=== PATIENT | female | born 1940 | race African-American/Black ===

== ENCOUNTER 2016-10-12 13:29 | Inpatient (IN) | payer OTHER ==
--- NOTE | ~2016-10-12 | OP ---
Record Of Operation [facility] [address] [place]. [address] NAME: WOJCIECH TERAN : 36 STATUS : ADM IN PAT#: [id number] AGE: 76 ADM/REG DATE : 10/12/16 MR#: [id number] REPORT SERV DATE: 10/12/16 DICTATED BY: CRISTEL LALA DATE: 10/12/16 REPORT STATUS : Draft TRANSCRIBED BY: MODL DATE: 10/12/16 DATE OF PROCEDURE: 10/12/2016 PREOPERATIVE DIAGNOSIS: Mechanical large bowel obstruction. POSTOPERATIVE DIAGNOSIS: Mechanical large bowel obstruction. PROCEDURE: Colostomy creation. ATTENDING: Gisel Lala M.D. CHIEF RESIDENT: Tee Short MD ANESTHESIA: General. IV FLUIDS: Approximately 1 L of crystalloid. ESTIMATED BLOOD LOSS: 20 mL. COMPLICATIONS: None. COUNTS: Correct. SPECIMEN: None. BRIEF HISTORY: This patient is a 76-year-old female with a three-day history of obstipation that previously had increased frequency of stools. She was suffering from abdominal pain and distention, and evaluated in the emergency department. CT of the abdomen and pelvis demonstrated mechanical large bowel obstruction at the level of the rectosigmoid junction. Of note, she has a large right abdominal wall hernia that contains the proximal colon. At this time, we offered her a colostomy creation, and reviewed the risks and benefits of the procedure with her and her daughters. They agreed to proceed. DESCRIPTION OF PROCEDURE: The patient was brought to the operating room and placed supine on the operating table. Anesthetic was administered and endotracheal intubation achieved. The abdomen was prepped and draped in standard sterile fashion. A time-out was held. Incision was made at the lateral aspect of the hernia cephalad from the umbilicus with a diameter of about 2 cm. The peritoneum was identified and opened. The large intestine was produced from the wound and a defect created in the mesentery. A white bar was passed across this. Next, the colon was opened in a transverse fashion and the ostomy matured with 3-0 chromic in a Erin fashion. Ostomy appliance was placed and the procedure terminated. The patient tolerated the procedure well, was extubated and transferred to recovery in stable condition. JDS/MODL Record Of Operation [facility] [address] [facility] [place]. [address] NAME: WOJCIECH TERAN : 36 STATUS : ADM IN PAT#: [id number] AGE: 76 ADM/REG DATE : 10/12/16 MR#: [id number] REPORT SERV DATE: 10/12/16 DICTATED BY: CRISTEL LALA DATE: 10/12/16 REPORT STATUS : Draft TRANSCRIBED BY: MODL DATE: 10/12/16 Gisel Lala M.D. / [id number] CC: Gisel Lala M.D.
--- NOTE | ~2016-10-12 | HP ---
History And Physical [id number] [place]. [address] NAME: WOJCIECH TERAN : 36 STATUS : ADM IN [facility]#: [id number] AGE: 76 ADM/REG DATE : 10/12/16 MR#: [id number] REPORT SERV DATE: 10/12/16 DICTATED BY: CRISTEL LALA DATE: 10/12/16 REPORT STATUS : Draft TRANSCRIBED BY: MODL DATE: 10/12/16 DATE OF ADMISSION: 10/12/2016 CHIEF COMPLAINT: Abdominal pain. HISTORY: Ms. Teran is a 76-year-old female who had presented with frequent small-volume stools, which had been going on for several weeks, but then had increasing distention, nausea, vomiting, and abdominal pain over the last approximately two to three days with decreased bowel function and abdominal pain, which is constant in nature along with bloating. She presented to the emergency room where she underwent CT scan, which was consistent with a colon obstruction at the rectosigmoid. There was some high density material at that site though she says she has never had a colon resection. She has had a hysterectomy and a chronic hernia. PAST MEDICAL HISTORY: Her medical illnesses include hypertension, coronary artery disease with history of stents, and arthritis, as well as congestive heart failure. MEDICATIONS: Include aspirin, Lipitor, and Plavix though she has not filled this for a long time, doxycycline, Lasix, Cozaar, Toprol, triamcinolone cream, and potassium. ALLERGIES: SHE HAS NO MEDICAL ALLERGIES. FAMILY HISTORY: Negative for colon cancer. She denies tobacco or ethanol abuse. REVIEW OF SYSTEMS: Comprehensive review of systems was obtained and she denies neurologic or psychiatric symptoms. She has a little bit of throat problems with allergies. She has had frequent urinary tract infections, but does not know of other kidney problems. She does have musculoskeletal complaints, but no chest pain or shortness of breath. A comprehensive review was otherwise negative. PHYSICAL EXAMINATION: VITAL SIGNS: Her blood pressure is 194/94, temperature 97.7, pulse is 76, and respiratory rate 18. GENERAL: She is alert, not in any distress. HEENT: She has no scleral icterus. She has moist mucous membranes. There is no JVD. No thyromegaly or cervical adenopathy. There is no use of accessory muscles of breathing. CHEST: Clear. HEART: Irregular. ABDOMEN: Distended with diminished bowel sounds. She does have a large incarcerated hernia, which is based on the CT scan is filled colon. DIAGNOSTIC STUDIES: Additional data: CT scan reveals a colon obstruction as previously mentioned and it was independently reviewed. Labs include a potassium of 3.3, creatinine of 1.08, and albumin is 3.9. White blood cell History And Physical [address] [place]. [address] NAME: WOJCIECH TERAN : 36 STATUS : ADM IN PAT#: [id number] AGE: 76 ADM/REG DATE : 10/12/16 MR#: [id number] REPORT SERV DATE: 10/12/16 DICTATED BY: CRISTEL LALA DATE: 10/12/16 REPORT STATUS : Draft TRANSCRIBED BY: DANIEL DATE: 10/12/16 count is 9 and hemoglobin is 12.4. Of note, she has not had any colonoscopies ever. IMPRESSION: Colon obstruction. We discussed options of stent and I discussed this with Dr. Perez and also we discussed the option of resection with end colostomy for anticipated temporary diversion with subsequent workup of the strictured area, which is obvious on CT scan and with subsequent definitive therapy and also a diverting stoma was discussed. The risks of the diverting stoma including but not limited to stoma problems, bleeding, infection, damage to organs, DVT, heart and lung complications, anesthesia, and need for stage operation among others were discussed with her and her family, and she expressed understanding and agreed to proceed. ERIK/DANIEL Gisel Lala M.D. / [id number] CC: Gisel Lala M.D. NO PCP
[2016-10-12 12:08] LABS: BASOPHILS 0 %; EOSINOPHILS 0 %; IMMATURE GRANULOCYTES 0.1 %; IMMATURE GRANULOCYTES ABSOLUTE 0.01 10/3/uL (0.0-0.11); LYMPHOCYTES 8.4 %; LYMPHOCYTES ABSOLUTE 0.76 10/3/uL (0.67-4.30); MEAN CORPUS HGB CONC 33.1 g/dL (32.0-36.0); MEAN CORPUSCULAR HEMOGLOB 25.8 pg (26.0-34.0); MEAN CORPUSCULAR VOLUME 78.1 fL (80-100); MEAN PLATELET VOLUME 10.2 fL (9.2-13.0); MONOCYTES ABSOLUTE 0.18 10/3/uL (0.21-1.20); NEUTROPHILS 89.5 %; NEUTROPHILS ABSOLUTE 8.05 10/3/uL (2.02-8.40); PLATELET COUNT 227 10/3/uL (150-400)
[2016-10-12 12:12] LABS: ER CBC TAT 0 Hrs 08 Mins; HEMATOCRIT 37.5 % (36.0-48.0); HEMOGLOBIN 12.4 g/dL (12.0-16.0); MANUAL DIFF NO %
[2016-10-12 12:23] LABS: ALBUMIN 3.9 G/DL (3.5-5.0); BUN (BLOOD UREA NITROGEN) 15 MG/DL (6-23); CALCIUM, SERUM 9.4 MG/DL (8.5-10.4); CHLORIDE, SERUM 105 MMOL/L (96-112); CO2 (CARBON DIOXIDE) 29 MMOL/L (24-34); CREATININE 1.08 MG/DL (0.55-1.02); GFR AFRICAN AMERICAN 57 ML/MIN (>=60); GFR NON AFRICAN AMERICAN 49 ML/MIN (>=60); SGPT(ALT) 16 U/L (5-65); SODIUM, SERUM 140 MMOL/L (135-148); TOTAL BILIRUBIN 0.5 MG/DL (0-1.2); TOTAL PROTEIN 7.9 G/DL (6.0-8.5)
[2016-10-12 12:25] LABS: POTASSIUM, SERUM 3.3 MMOL/L (3.5-5.3)
[2016-10-12 12:26] LABS: ALKALINE PHOSPHATASE 142 U/L (45-117); GLUCOSE, SERUM 142 MG/DL (60-99); SGOT(AST) 19 U/L (5-40)
[2016-10-12 13:05] LABS: ASCORBIC ACID (UR NOT ORDER) NEG (NEG); BILIRUBIN, URINE NEGATIVE (NEG); ER URINALYSIS TAT 0 Hrs 08 Mins; KETONE, URINE NEGATIVE (NEG); LEUKOCYTE ESTERASE(NOT OR NEG (NEG); NITRITE (URINE) NEG (NEG); WBC (NOT ORDERED) (RFLEX) 1 (0-5)
[2016-10-12] MEDS ORDERED: VIBRATAB100 MG PO (13:49)
[2016-10-12] MEDS ORDERED: HALF81 PO (13:49)
[2016-10-12] MEDS ORDERED: LIPITOR40 PO (13:50)
[2016-10-12] MEDS ORDERED: COZAAR100 MG PO (13:50)
[2016-10-12] MEDS ORDERED: TRIAMCINOLONE C80 GM TOP (13:52)
[2016-10-12] MEDS ORDERED: KLOR-CON M2020 MEQ PO (13:54)
[2016-10-12] MEDS ORDERED: TOPXL25 PO (13:58)
[2016-10-12] MEDS ORDERED: PLAVIX PO (13:58)
[2016-10-12] MEDS ORDERED: L40 PO (13:59)
[2016-10-13 04:46] LABS: BUN (BLOOD UREA NITROGEN) 13 MG/DL (6-23); CALCIUM, SERUM 8.7 MG/DL (8.5-10.4); CHLORIDE, SERUM 107 MMOL/L (96-112); CO2 (CARBON DIOXIDE) 27 MMOL/L (24-34); GFR AFRICAN AMERICAN 62 ML/MIN (>=60); GFR NON AFRICAN AMERICAN 54 ML/MIN (>=60); GLUCOSE, SERUM 121 MG/DL (60-99); POTASSIUM, SERUM 3.7 MMOL/L (3.5-5.3); SODIUM, SERUM 142 MMOL/L (135-148)
[2016-10-14] MEDS ORDERED: IBU600 PO (10:15)
== END 2016-10-14 13:55 | disposition home health service (06) | DRG 331 ==
LOC: ER 13:29 → 5SO 15:16
PROVIDERS: Colon & Rectal Surgery; Emergency Medicine
PROC: 0D1K0Z4 Bypass Ascending Colon to Cutaneous, Open Approach (ICD-10-PCS; principal; 2016-10-12 16:17)
DX: K56.69 Other intestinal obstruction (principal); I50.9 Heart failure, unspecified; K59.00 Constipation, unspecified; I10 Essential (primary) hypertension; I25.10 Atherosclerotic heart disease of native coronary artery without angina pectoris; Z95.5 Presence of coronary angioplasty implant and graft; Z90.02 Acquired absence of larynx; Z90.710 Acquired absence of both cervix and uterus; M19.90 Unspecified osteoarthritis, unspecified site; Z79.82 Long term (current) use of aspirin; Z79.899 Other long term (current) drug therapy
CPT/HCPCS: 36415; 74176; 80048; 80053; 81001; 83690; 83880; 85025; 86850; 86900; 86901; 93005; 99291; A9270-GY; J0330; J0690; J1885; J2405; J2710; J3010